=== PATIENT | female | born 1995 | race Caucasian/White ===

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

== ENCOUNTER 2018-03-01 15:19 | Emergency (ER) | payer OTHER ==
[~2018-03-01] VITALS: Ht 170.2 cm; Wt 61.8 kg
[2018-03-01 15:59] LABS: HEMATOCRIT 29.9 % (36.0-46.0); HEMOGLOBIN 10.5 G/DL (11.9-15.5); MCH 31.3 PG (29.0-34.0); MCHC 35.1 G/DL (30.0-36.0); PLATELET COUNT 335 K/uL (156-360); RBC DIS.WIDTH-CV 11.9 % (11.8-14.6); RBC DIS.WIDTH-SD 38.4 % (39-53); RED BLOOD COUNT 3.36 M/uL (3.80-5.20); WHITE BLOOD COUNT 11.5 K/uL (4.1-10.2)
[2018-03-01 16:20] LABS: TROP-I INTERPRETATION NEGATIVE; TROPONIN-I < 0.01 ng/mL (0.0-0.30)
[2018-03-01 16:26] LABS: ALBUMIN 3.7 g/dL (3.2-4.8); CHLORIDE 105 mEq/L (99-109); POTASSIUM 3.8 mEq/L (3.7-5.4); SODIUM 137 mEq/L (136-147)
[2018-03-01 16:29] LABS: GLUCOSE 89 mg/dL (70-99); TOTAL PROTEIN 6.4 g/dL (6.4-8.3)
[2018-03-01 16:31] LABS: TOTAL BILIRUBIN 0.4 mg/dL (0.0-1.0)
[2018-03-01 16:32] LABS: ALKALINE PHOSPHATASE 69 IU/L (3-129); CREATININE 0.6 mg/dL (0.6-1.3); GFR ESTIMATE (CALCULATED) > 59 mL/min/
[2018-03-01 16:33] LABS: UREA NITROGEN (BUN) 10 mg/dL (9-23)
[2018-03-01 16:34] LABS: AST (GOT) 13 IU/L (2-34)
[2018-03-01 16:35] LABS: ALT (GPT) 13 IU/L (3-49)
[2018-03-01 16:36] LABS: LIPASE 19 U/L (1.0-51.0)
[2018-03-01 18:41] VITALS: BP 111/72
[2018-03-01] MEDS ORDERED: ASPIRIN81 M2 PO (19:39)
[2018-03-01] MEDS ORDERED: PRENATAL GUMMI1 EACH PO (19:39)
== END 2018-03-01 18:46 | disposition home or self-care (01) ==
LOC: EME 15:19
PROVIDERS: Emergency Medicine
DX: O26.892 Other specified pregnancy related conditions, second trimester (principal); R07.9 Chest pain, unspecified; R10.30 Lower abdominal pain, unspecified; Z3A.26 26 weeks gestation of pregnancy; O99.342 Other mental disorders complicating pregnancy, second trimester; F31.9 Bipolar disorder, unspecified; F90.9 Attention-deficit hyperactivity disorder, unspecified type; F32.9 Major depressive disorder, single episode, unspecified; Z87.891 Personal history of nicotine dependence
CPT/HCPCS: 71046; 80048; 80053; 83690; 84484; 85027; 93005; 99281; 99285